=== PATIENT | male | born 1955 | race Caucasian/White ===

== ENCOUNTER → 2016-12-21 | Outpatient (CLI) | payer OTHER ==
--- NOTE | 2016-12-25 10:09 | REP ---
Whole body PET CT scan: Comparison is the chest CT dated 12/07/2016. Whole-body scanning is performed from skull base to the upper thighs. Neck and supraclavicular areas: There are no hypermetabolic foci. Chest: There are no hypermetabolic foci in the right or left lionel . There is no hypermetabolic focus in the aorticopulmonic window. There is an infiltrate-like density in the left lower lobe that has a different configuration than the comparison chest CT. There is a hypermetabolic uptake within this infiltrate-like density with a standard uptake value maximally measuring 3.0. There are no other hypermetabolic foci in the chest. Abdomen, pelvis and upper thighs: There are no hypermetabolic foci. There is nonspecific bowel uptake in there is physiologic radio labeling of the renal pelves and ureters. Impression: There is hypermetabolic uptake in an infiltrate - like density in the left lower lobe. There are no other hypermetabolic foci. The study is performed with 10 mCi of F 18 FDG. Signed by Ankur Bellamy MD 12/25/2016 09:59 A
== END ==
LOC: M PLARAD 10:19
PROVIDERS: ATTEND Family Medicine
DX: R91.8 Other nonspecific abnormal finding of lung field (principal)
CPT/HCPCS: 78815; A9552

== ENCOUNTER 2017-02-13 12:36 | Day surgery (SDC) | payer OTHER ==
[~2017-02-13] VITALS: Ht 170.2 cm; Wt 59.9 kg
[2017-02-13] MEDS ORDERED: D5W 1,000 ML IV SCH (13:00)
[2017-02-13] MEDS ORDERED: VENTAER IN (14:00)
[2017-02-13] MEDS ORDERED: THIA100TA PO (14:00)
[2017-02-13] MEDS ORDERED: ADV250INH INH (14:00)
[2017-02-13] MEDS ORDERED: ZOLO50TA PO (14:00)
[2017-02-13] MEDS ORDERED: MIDAZOLAM INJ 2 MG/2 ML VIAL (J2250) As Ordered ONE ×2 (14:14→14:15)
[2017-02-13] MEDS ORDERED: fentaNYL 100 MCG/2 ML INJECTION (J3010) As Ordered ONE (14:16)
[2017-02-13] MEDS ORDERED: LIDOCAINE 1% MDV 20ML VIAL As Ordered ONE (15:02)
[2017-02-13] MEDS ORDERED: LIDOCAINE VISCOUS 2% SOLN 15ML UDC As Ordered ONE (15:02)
[2017-02-13 15:35] VITALS: BP 140/79
--- NOTE | 2017-02-13 20:14 | RO ---
DATE OF PROCEDURE: 02/13/2017 PREPROCEDURE DIAGNOSIS: Abnormal CT scan. POSTPROCEDURE DIAGNOSIS: Abnormal CT scan with chronic bronchitis. OPERATIVE PROCEDURE: Fiberoptic bronchoscopy with washes and photos. 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 Conscious sedation was with 75 mcg of fentanyl and 6 mg of versed given intravenously and titrated sequentially for affect. OPERATIVE FINDINGS: 1. Mild changes of chronic bronchitis throughout. 2. Retained secretions of the lower lobes, left much greater than right. DESCRIPTION OF PROCEDURE: Informed consent was obtained prior to the procedure. After the patient identified and the above anesthesia given the fiberoptic bronchoscope was easily passed via the right nares. Hypopharynx was entered and appeared normal. Vocal cords moved well. The trachea was then entered. Widely patent. Kirstin was sharp and moved well. Some secretions were noted in both mainstem bronchi. Left lung entered first. Again, secretions were noted throughout, but in general proximally were more watery and were able to be suctioned clear. 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 The lingula was widely patent with two subsegments. The dependent segments had thick tenacious secretions that required suction as well as lavage to eventually clear them. When these were cleared, all segments and subsegments of the remainder of the lower lobe were easily identified and widely patent. Changes of chronic bronchitis were noted. The right lung was then entered. In a sequential fashion, upper, middle and lower lobes easily identified. Right middle lobe had thick tenacious secretions similar to those found in the left lower lobe. These were more easily suctioned clear, however. There were some similar findings in the basilar segments of the right lower lobe, but again were more easily suctioned clear. When all segments, subsegments of right and left lung were assured to be clear of secretions, scope was then withdrawn and the procedure terminated. Oxygen saturations remained greater than 94% throughout the examination on supplemental oxygen. The patient was taken to the recovery room in good and stable condition. No immediate complications of conscious sedation were identified.
== END 2017-02-13 15:35 | disposition home or self-care (01) ==
LOC: M OPP 12:36 → EDSTATUS 14:00 → M OPP 15:35
PROVIDERS: ATTEND Internal Medicine Pulmonary Disease
DX: J40 Bronchitis, not specified as acute or chronic (principal)
CPT/HCPCS: 31622; 87070; 87077; 87102; 87116; 87186; 87205; 87206; 88104; 99152; 99153; J2250; J3010

== ENCOUNTER → 2021-08-09 | Outpatient (CLI) | payer OTHER ==
[~2021-08-09] MED LIST: ADV250INH INH; THIA100TA PO; VENTAER IN; ZOLO50TA PO
== END ==
LOC: M RAD 14:12
PROVIDERS: ATTEND Internal Medicine Pulmonary Disease
DX: Z87.891 Personal history of nicotine dependence (principal)

== ENCOUNTER → 2021-09-17 | Outpatient (CLI) | payer MEDICARE, OTHER ==
[2021-09-17 17:29] LABS: BASO % 0.6 % (0.0-1.0); EOS # 0.2 10^3/uL (0.0-0.5); EOS % 2.8 % (0.0-3.0); HEMATOCRIT 46.4 % (42.0-52.0); HEMOGLOBIN 15.2 g/dl (13.5-17.5); LYMPH # 1.8 10^3/uL (1.5-5.0); LYMPH % 26.1 % (24.0-44.0); MEAN CORPUSCULAR HEMOGLOBIN 31.1 pg (27.0-33.0); MEAN CORPUSCULAR HGB CONC 32.8 g/dl (32.0-36.5); MEAN CORPUSCULAR VOLUME 94.9 fl (80.0-96.0); MONO # 0.7 10^3/uL (0.0-0.8); MONO % 9.8 % (2.0-8.0); NEUTROPHILS # 4.3 10^3/uL (1.5-8.5); NEUTROPHILS % 60.4 % (36.0-66.0); PLATELET COUNT, AUTOMATED 263 10^3/uL (150-450); RED BLOOD COUNT 4.89 10^6/uL (4.30-6.10); WHITE BLOOD COUNT 7.1 10^3/uL (4.0-10.0)
[2021-09-17 18:37] LABS: ERYTHROCYTE SEDIMENTATION RATE 6 mm/hr (0-20)
== END ==
LOC: M LAB 16:52
PROVIDERS: ATTEND Physician Assistant
DX: S92.012D Displaced fracture of body of left calcaneus, subsequent encounter for fracture with routine healing (principal); Z79.899 Other long term (current) drug therapy

== ENCOUNTER → 2022-02-02 | Outpatient (CLI) | payer MEDICARE | LOC: M RAD 09:51 | PROVIDERS: ATTEND Urology | DX: N40.0 Benign prostatic hyperplasia without lower urinary tract symptoms (principal); R97.20 Elevated prostate specific antigen [PSA] ==

== ENCOUNTER → 2022-08-23 | Outpatient (CLI) | payer MEDICARE, OTHER | LOC: M RAD 14:18 | PROVIDERS: ATTEND Internal Medicine Pulmonary Disease | DX: Z87.891 Personal history of nicotine dependence (principal) ==

== ENCOUNTER → 2023-12-08 | Outpatient (CLI) | payer OTHER ==
[~2023-12-08] MED LIST changes: +ATOR1TAB21; +B-1100TA2; +MIRT-10; +OXYB5TAB14
== END ==
LOC: M RAD 14:27
PROVIDERS: ATTEND Internal Medicine Pulmonary Disease
DX: Z12.2 Encounter for screening for malignant neoplasm of respiratory organs (principal); F17.218 Nicotine dependence, cigarettes, with other nicotine-induced disorders; R91.8 Other nonspecific abnormal finding of lung field